=== PATIENT | female | born 1990 | race African-American/Black ===

== ENCOUNTER 2021-03-23 08:09 | Emergency (ER) | payer SELFPAY ==
[2021-03-23] MEDS ORDERED: Ibuprofen 800 MG TAB ONE (08:31)
== END 2021-03-23 09:16 | disposition home or self-care (01) ==
LOC: ERS 08:09
DX: M21.42 Flat foot [pes planus] (acquired), left foot (principal)

== ENCOUNTER 2021-05-27 16:19 | Emergency (ER) | payer SELFPAY | END 2021-05-27 18:48 | disposition home or self-care (01) | LOC: ERS 16:19 | DX: H60.91 Unspecified otitis externa, right ear (principal) | CPT/HCPCS: 99282 ==

== ENCOUNTER 2021-08-26 13:05 | Emergency (ER) | payer SELFPAY ==
[2021-08-26] MEDS ORDERED: Ondansetron ODT 4 MG TAB ONE (13:15)
[2021-08-26 21:48] LABS: SARS-CoV-2 PCR by NAA Not Detected (NotDetected)
== END 2021-08-26 14:03 | disposition home or self-care (01) ==
LOC: ERS 13:05
DX: R11.2 Nausea with vomiting, unspecified (principal); R19.7 Diarrhea, unspecified; R10.9 Unspecified abdominal pain; Z20.822 Contact with and (suspected) exposure to COVID-19
CPT/HCPCS: 99284; Q0162; U0003; U0005

== ENCOUNTER 2023-05-10 22:38 | Emergency (ER) | payer SELFPAY ==
[2023-05-10] MEDS ORDERED: Acetaminophen 500 MG TAB ONE (23:20)
[2023-05-10 23:29] LABS: #Monocytes 0.5 thou/uL (0.11-0.59); #Neutrophils 7.5 thou/uL (1.40-6.50); %Basophils 0.1 % (0.0-1.0); %Lymphocytes 5.1 % (21.0-51.0); %Monocytes 5.5 % (0.0-10.0); %Neutrophils 88.8 % (42.0-75.0); Hematocrit 33.5 % (36.0-47.0); Hemoglobin 11.6 g/dL (12.0-16.0); Mean Corpuscular HGB CONC 34.6 g/dL (32.0-36.0); Mean Corpuscular Hemoglobin 31.4 pg (27.0-31.0); Mean Corpuscular Volume 90.5 fl (78.0-98.0); Mean Platelet Volume 10.1 fL (7.4-10.4); Platelet Count 234 10x3/uL (130-400); RBC Distribution Width 12.6 % (11.5-14.5); White Blood Cell (WBC) Count 8.5 10x3/uL (4.8-10.8)
[2023-05-10 23:53] LABS: ALT (SGPT) 75 U/L (8-55); AST (SGOT) 67 U/L (5-34); Alkaline Phosphatase 69 U/L (40-110); Anion Gap 13 mmol/L (10-20); BUN (Urea Nitrogen) 6 mg/dL (7.0-18.7); Bilirubin, Total Less than 0.2 mg/dL (0.2-1.2); Calc. Creatinine Clearance 0 mL/min (70-130); Carbon Dioxide 21 mmol/L (22-29); Chloride 103 mmol/L (98-107); Estimated GFR 119; Globulin 3.4 g/dL (2.4-3.5); Glucose 111 mg/dL (70-105); Potassium 3.3 mmol/L (3.5-5.1); Protein, Total 7.4 g/dL (6.0-8.3); Sodium 134 mmol/L (136-145)
[2023-05-11 00:29] LABS: SARS-CoV-2 NAA Rapid Test Not Detected (NotDetected)
[2023-05-11 00:56] LABS: Bacteria/HPF None Seen HPF (None Seen); Bilirubin Negative (Negative); Blood, Urine Negative (Negative); CAUTI Indications for Culture Pregnancy; Clarity Clear (Clear); Glucose, Urine (Dipstick) Normal (Negative); Ketone, Urine Negative (Negative); Leukocyte Negative Leu/uL (Negative); Nitrite Negative (Negative); Protein, Urine (Dipstick) Negative (Neg-Trace); RBC/HPF 0-3 HPF (0-3); Specific Gravity, Urine 1.017 (1.002-1.036); Squamous Epithelial None Seen HPF (0-3); Urobilinogen Normal mg/dL (Less than 2); WBC/HPF 0-3 HPF (0-3); pH, Urine 7.5 (5.0-9.0)
[2023-05-11 00:59] LABS: Urine Culture Reflex Yes Yes
[2023-05-11] MEDS ORDERED: Morphine 2 MG/ML VIAL ONE (01:06)
[2023-05-11] MEDS ORDERED: Morphine 4 MG/ML VIAL ONE (02:00)
[2023-05-11] MEDS ORDERED: Oseltamivir 75 MG CAP PO SCH (03:15)
== END 2023-05-11 12:00 | disposition short-term general hospital (02) ==
LOC: ERS 22:38
DX: J10.1 Influenza due to other identified influenza virus with other respiratory manifestations (principal); R00.0 Tachycardia, unspecified; Z20.822 Contact with and (suspected) exposure to COVID-19
CPT/HCPCS: 71045; 80053; 81001; 85025; 87086; 93005; 96374; 96376; J2270; J2272